=== PATIENT | female | born 2000 | race Caucasian/White ===

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

== ENCOUNTER 2020-07-20 20:56 | Emergency (ER) | payer MEDICAID, SELFPAY ==
[2020-07-20 20:57] VITALS: BP 137/97; PULSE 102; RESP 16; TEMP 36.9; O2SAT 97; BMI 20.5
--- NOTE | 2020-07-20 21:13 | CT_ITS ---
HISTORY: Trauma, fall TECHNIQUE: Multiple axial images were obtained of the brain without intravenous contrast. A radiation dose optimization technique was used for this scan. IV Contrast dosage and agent: None. COMPARISON: None FINDINGS: # of images incl. paperwork: 226 PARANASAL SINUSES AND MASTOID AIR CELLS: Clear. INTRACRANIAL HEMORRHAGE: None. BRAIN PARENCHYMA: No CT evidence of stroke. No intracranial masses. There is preservation of the mcguire/white matter interface. Posterior fossa structures are unremarkable. CSF SPACES: Appropriate for age. There is no hydrocephalus. MASS EFFECT: None. CALVARIUM: Intact. CT/Brain/Head without Contrast IMPRESSION: No acute intracranial findings. Individualized dose optimization techniques were used for this CT. at 2157 Reported and signed by: Raymond Celaya MD Electronically Signed: Raymond Celaya MD at 21:56 EDT Tel , Service support ,
--- NOTE | 2020-07-20 21:13 | CT_ITS ---
HISTORY: Trauma, fall EXAMINATION: CT Spine Cervical W/O Contrast Injection TECHNIQUE: Helically acquired images were obtained of the cervical spine. 2D reformatted images were reviewed. A radiation dose optimization technique was used for this scan. IV Contrast dosage and agent: None. COMPARISON: None FINDINGS: VERTEBRAE: No fracture or traumatic subluxation. No discrete lytic or blastic abnormality observed. Normal alignment. Normal craniocervical junction and cervicothoracic junction. DISCS and SPINAL CANAL: Disc heights are preserved. No critical stenosis. NECK SOFT TISSUES: No prevertebral soft tissue swelling. There is no cervical adenopathy. LUNG APICES: Clear. CT/Spine Cervical without Contras IMPRESSION: No evidence of acute cervical spinal fracture. Individualized dose optimization techniques were used for this CT. at 2159 Reported and signed by: Raymond Celaya MD Electronically Signed: Raymond Celaya MD at 21:58 EDT Tel , Service support ,
--- NOTE | 2020-07-20 21:40 | RAD_ITS ---
HISTORY: fall EXAMINATION/TECHNIQUE: XR Spine Thoracic 2 Views: 2 views COMPARISON: None FINDINGS: VERTEBRAE: Preserved vertebral body height. No fracture. No spondylolisthesis. Preservation of the normal thoracic kyphosis. No significant facet arthropathy. DISCS: Disc spaces are maintained. INCLUDED CHEST/ABDOMEN: No acute abnormalities. RAD/Thoracic Spine 2 Views IMPRESSION: No evidence of thoracic spinal fracture or spondylolisthesis. at 2200 Reported and signed by: Raymond Celaya MD Electronically Signed: Raymond Celaya MD at 21:59 EDT Tel , Service support ,
[2020-07-20] MEDS: HYDROcodone Bitartrate/Apap 5/325 Tablet PO (22:00)
[2020-07-20] MEDS: Naproxen 500 MG Tablet PO (22:00)
--- NOTE | 2020-07-20 22:20 | EX.ED.GENINJ ---
HPI History of Present Illness Chief Complaint: Trauma Informant: patient Onset/Context/Timing Onset: Today Mechanism/Context: Fall (7 foot fall, landed on head and flexed neck) Location: Head, neck Current Severity: Mild Maximum Severity: Moderate Associated Symptoms Associated Symptoms: Negative for Parasthesias, Weakness and Loss of function Narrative Narrative: Patient presents for evaluation approximately 3 hours after a fall. 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 She fell approximately 7 feet landing on her head with her neck in the flexed position. Patient denies loss of consciousness. She complaining of headache and neck pain. No paresthesias or arm weakness. No vision change or vomiting. PFSH PFSH Home Medications cyclobenzaprine 10 mg PO BID PRN #10 tab 07/20/20 [Rx Last Taken Unknown] drospirenone-ethinyl estradiol [Loryna (28)] 1 tab PO DAILY 07/20/20 [History Last Taken Unknown] oxycodone 5 mg PO Q8H PRN 3 Days #14 cap 07/20/20 [Rx Last Taken Unknown] Allergy/AdvReac Type Severity Reaction Status Date / Time No Known Allergies Allergy Verified 07/20/20 20:59 Social History Smoking Status: Never smoker ROS ROS ED Constitutional Constitutional ED: Denies chills or fever(s) Eyes Eyes: Denies change in vision ENT ENT ED: Denies sore throat Cardiovascular Cardiovascular: Denies chest pain Respiratory/Chest Respiratory/Chest: Denies cough or dyspnea Gastrointestinal Gastrointestinal: Denies abdominal pain, diarrhea, nausea or vomiting Genitourinary Genitourinary ED: Denies dysuria Musculoskeletal Musculoskeletal: Reports neck pain; Denies back pain Integumentary Denies rash Neurologic Neurologic: Reports headache(s); Denies paresthesias or weakness Psychiatric Psychiatric: Denies anxiety or depression Endocrine Endocrinology: Denies polydipsia or polyuria Allergic/Immunologic Allergic/Immunologic ED: Denies urticaria EXAM Physical Exam Const Vital Signs: 07/20/20 20:57 07/20/20 21:07 07/20/20 22:25 Temperature 98.5 F Temperature Source Temporal Pulse Rate 102 H 80 Respiratory Rate 16 15 Respiratory Effort Normal Respiratory Depth Normal Respiratory Pattern Normal Blood Pressure 137/97 H 121/80 H Blood Pressure Mean 110 Pulse Ox 97 Oxygen Delivery Method Room Air Positive well nourished and well developed General Appearance ED: well developed HEENT Reports normocephalic and head/scalp atraumatic Eyes PERRL and EOMs intact bilaterally Neck supple Neck Narrative: Midline C-spine tenderness. No step-offs. C-collar remains in place. Chest Wall inspection of chest normal and palpation of chest normal Resp normal respiratory effort and clear to auscultation bilaterally Cardio regular rate and regular rhythm GI normal to inspection, nondistended, normoactive bowel sounds Palpation: soft Back/Spine no CVA tenderness and normal to inspection Back/Spine Narrative: Mild tenderness to the upper thoracic spine. Extremity normal to inspection Neuro oriented x3 and no sensory deficits noted Sensorium / Orientation: alert Motor Exam: strength 5/5 throughout Psych mental status grossly normal Skin no rashes or lesions noted MDM MDM MDM Narrative Medical decision making narrative: Patient was sent for CT scan of the head and C-spine as well as x-rays of the thoracic spine. Following my review of the images she is given naproxen and oxycodone for pain. Radiography Diagnostic Testing: Radiology Impression Brain CT 07/20/20 21:13 IMPRESSION: No acute intracranial findings. Individualized dose optimization techniques were used for this CT. at 2157 Reported and signed by: Raymond Celaya MD Electronically Signed: Raymond Celaya MD at 21:56 EDT Tel , Service support , Cervical Spine CT 07/20/20 21:13 IMPRESSION: No evidence of acute cervical spinal fracture. Individualized dose optimization techniques were used for this CT. at 2159 Reported and signed by: Raymond Celaya MD Electronically Signed: Raymond Celaya MD at 21:58 EDT Tel , Service support , Thoracic Spine X-Ray 07/20/20 21:40 IMPRESSION: No evidence of thoracic spinal fracture or spondylolisthesis. at 2200 Reported and signed by: Raymond Celaya MD Electronically Signed: Raymond Celaya MD at 21:59 EDT Tel , Service support , Treatment and Re-Evaluation Comments:: Thoracic spine reviewed by myself reveals no obvious abnormalities. CT scan of the head and C-spine are also reviewed. Radiologist interpretation of all images is reviewed. On repeat evaluation test results discussed with patient and mother at bedside. C-collar was removed. Patient will be written for oxycodone to use for breakthrough pain. She will try to stick with Tylenol and ibuprofen. She is also written for muscle relaxers secondary to spasm. Discharge Plan Triage Chief Complaint: Trauma ED Provider: Ya Martinez Dx/Rx/DC Orders Clinical Impression: Acute neck sprain, Closed head injury Instructions: ED Head Injury (Adult), ED Neck Sprain or Strain Prescriptions: New oxycodone 5 mg capsule 5 mg PO Q8H PRN (Reason: pain) 3 Days Qty: 14 RF: 0 cyclobenzaprine 10 mg tablet 10 mg PO BID PRN (Reason: muscle spasm) Qty: 10 RF: 0 No Action drospirenone-ethinyl estradiol [Loryna (28)] 3-0.02 mg Tablet 1 tab PO DAILY RF: 0 Primary Care Provider: Care Physician,No Primary Referrals: Chris Schultz MD [STAFF PHYSICIAN] - As Needed Care Physician,No Primary [Primary Care Provider] - Disposition Disposition: Home, self care Discharge Date/Time: 07/20/20 22:30
[2020-07-20 22:25] VITALS: BP 121/80; PULSE 80; RESP 15
== END 2020-07-20 22:30 | disposition home or self-care (01) ==
PROVIDERS: Emergency Provider Emergency Medicine
DX: S13.9XXA Sprain of joints and ligaments of unspecified parts of neck, initial encounter (principal); S09.90XA Unspecified injury of head, initial encounter; W17.89XA Other fall from one level to another, initial encounter; Y93.45 Activity, cheerleading; Y92.9 Unspecified place or not applicable
CPT/HCPCS: 70450; 72070; 72125; 99283